=== PATIENT | male | born 1960 | race African-American/Black ===

== ENCOUNTER 2017-03-18 14:09 | Emergency (ER) | payer MEDICARE, MEDICAID ==
[~2017-03-18] VITALS: Ht 175.3 cm; Wt 117.7 kg
[2017-03-18 14:16] VITALS: BP 168/94
== END 2017-03-18 15:43 | disposition left against medical advice (07) ==
LOC: ED 15:37
DX: S80.212A Abrasion, left knee, initial encounter (principal); S80.211A Abrasion, right knee, initial encounter; S09.90XA Unspecified injury of head, initial encounter; S09.93XA Unspecified injury of face, initial encounter; S19.9XXA Unspecified injury of neck, initial encounter; Y04.8XXA Assault by other bodily force, initial encounter; Y93.89 Activity, other specified; Y99.8 Other external cause status; Y92.89 Other specified places as the place of occurrence of the external cause; S49.91XA Unspecified injury of right shoulder and upper arm, initial encounter
CPT/HCPCS: 99281